=== PATIENT | female | born 1950 | race Caucasian/White ===

== ENCOUNTER 2018-02-01 16:31 | Emergency (ER) | payer OTHER ==
[~2018-02-01] VITALS: Ht 162.6 cm; Wt 70.3 kg
[2018-02-01] MEDS ORDERED: CIPRO500 MG PO (17:02)
[2018-02-01] MEDS ORDERED: COZAAR25 MG PO (17:02)
== END 2018-02-01 22:13 | disposition home or self-care (01) ==
LOC: ER 16:31
DX: K57.30 Diverticulosis of large intestine without perforation or abscess without bleeding (principal); R10.32 Left lower quadrant pain

== ENCOUNTER 2018-02-03 10:59 | Emergency (ER) | payer OTHER ==
[~2018-02-03] VITALS: Ht 162.6 cm; Wt 70.3 kg
[~2018-02-03 10:59] MED LIST: CIPRO500 MG PO; COZAAR25 MG PO
[2018-02-03] MEDS ORDERED: MEDROL4 MG (11:03)
== END 2018-02-03 13:52 | disposition home or self-care (01) ==
LOC: ER 10:59
DX: I82.492 Acute embolism and thrombosis of other specified deep vein of left lower extremity (principal)

== ENCOUNTER → 2018-02-07 06:20 | Outpatient (CLI) | payer OTHER ==
[~2018-02-07 06:20] MED LIST changes: +MEDROL4 MG
== END | disposition home or self-care (01) ==
LOC: LAB 06:20
DX: D68.59 Other primary thrombophilia (principal); D68.8 Other specified coagulation defects; D68.61 Antiphospholipid syndrome; I82.409 Acute embolism and thrombosis of unspecified deep veins of unspecified lower extremity; E03.8 Other specified hypothyroidism; E11.65 Type 2 diabetes mellitus with hyperglycemia; D64.89 Other specified anemias; R97.0 Elevated carcinoembryonic antigen [CEA]; Z12.11 Encounter for screening for malignant neoplasm of colon

== ENCOUNTER 2018-02-11 08:02 | Outpatient (CLI) | payer OTHER | END 2018-02-11 08:21 | disposition home or self-care (01) | LOC: LAB 08:02 | DX: D68.59 Other primary thrombophilia (principal); D68.69 Other thrombophilia; D68.61 Antiphospholipid syndrome; I82.409 Acute embolism and thrombosis of unspecified deep veins of unspecified lower extremity ==

== ENCOUNTER 2018-02-27 08:57 | Outpatient (CLI) | payer OTHER | END 2018-02-27 09:10 | disposition home or self-care (01) | LOC: NUCLEAR 08:57 | DX: I82.403 Acute embolism and thrombosis of unspecified deep veins of lower extremity, bilateral (principal) ==

== ENCOUNTER → 2018-03-13 | Emergency (ER) | payer OTHER ==
[~2018-03-13] VITALS: Ht 162.6 cm; Wt 68.0 kg
[~2018-03-13] MED LIST changes: +ELIQUIS5 MG
== END | disposition home or self-care (01) ==
LOC: ER 08:55
DX: R07.89 Other chest pain (principal)

== ENCOUNTER 2018-06-19 09:00 | Outpatient (CLI) | payer OTHER | END 2018-06-19 10:42 | disposition home or self-care (01) | LOC: LAB 09:00 | DX: I82.402 Acute embolism and thrombosis of unspecified deep veins of left lower extremity (principal); D68.69 Other thrombophilia ==

== ENCOUNTER 2018-06-27 15:03 | Outpatient (CLI) | payer OTHER | END 2018-06-27 15:13 | disposition home or self-care (01) | LOC: NUCLEAR 15:03 | DX: I82.532 Chronic embolism and thrombosis of left popliteal vein (principal) ==

== ENCOUNTER 2018-10-28 13:06 | Emergency (ER) | payer OTHER ==
[~2018-10-28] VITALS: Ht 160 cm; Wt 70.3 kg
== END 2018-10-28 15:57 | disposition home or self-care (01) ==
LOC: ER 13:06
DX: B34.9 Viral infection, unspecified (principal); J11.1 Influenza due to unidentified influenza virus with other respiratory manifestations

== ENCOUNTER → 2018-12-20 | Emergency (ER) | payer OTHER | END | disposition left against medical advice (07) | LOC: ER 16:18 | DX: Z53.20 Procedure and treatment not carried out because of patient's decision for unspecified reasons (principal) ==

== ENCOUNTER → 2020-02-24 06:44 | Outpatient (CLI) | payer OTHER | END | disposition home or self-care (01) | LOC: LAB 06:44 | DX: I82.422 Acute embolism and thrombosis of left iliac vein (principal) ==

== ENCOUNTER 2020-07-02 08:02 | Outpatient (CLI) | payer OTHER | END 2020-07-02 08:08 | disposition home or self-care (01) | LOC: RAD 08:02 | PROVIDERS: ATTEND Ophthalmology | DX: R06.89 Other abnormalities of breathing (principal) ==

== ENCOUNTER 2025-03-13 10:58 | Emergency (ER) | payer OTHER ==
[~2025-03-13] VITALS: Ht 162.6 cm; Wt 70.8 kg
[2025-03-13] MEDS ORDERED: 0.9 % SODIUM CHLORIDE 1,000 ML IV SCH (13:30)
[2025-03-13] MEDS ORDERED: FAMOTIDINE/PF 20 MG in 0.9 % SODIUM CHLORIDE 8 ML IV PUSH ONE (13:30)
[2025-03-13] MEDS ORDERED: ACETAMINOPHEN 500 MG GEL..CAP PO ONE ×3 (13:30→15:59)
[2025-03-13] MEDS ORDERED: FAMOTIDINE/PF 20 MG/2 ML VIAL ONE (13:57)
[2025-03-13 16:27] LABS: BASO % 0.6 % (0.1-1.2); EOS # 0.05 (0.04-0.54); EOS % 0.7 % (0.7-7.0); LYMPH # 1.71 (1.18-3.74); LYMPH % 25.5 % (19.3-53.1); MEAN PLATELET VOLUME 10.80 fl (9.4-12.4); MONO # 0.56 (0.24-0.82); MONO % 8.3 % (4.7-12.5); NEUT # 4.34 (1.56-6.13); NEUT % 64.8 % (34.0-71.1); RED CELL DISTRIBUTION WIDTH 13.4 % (11.6-14.4)
[2025-03-13 16:45] LABS: INR 1.02
[2025-03-13 16:48] LABS: D DIMER 0.22 MG/L
[2025-03-13 16:58] LABS: ALT/SGPT 22.0 U/L (12-78); AST/SGOT 15.0 U/L (15-37); BILIRUBIN TOTAL 0.48 mg/dL (0.3-1.2); BUN CREA RATIO 26.0 (7.0-25.0); CREATININE SERUM 0.65 mg/dL (0.55-1.02); GFR 88.86; GLOBULINA 3.8 G/DL (2.4-3.5); GLUCOSE FASTING 91.0 mg/dL (65-100); OSMOLALITY SERUM 282.0 MOSM/KG (275-295)
[2025-03-13] MEDS ORDERED: 8HR ARTHRITIS650 M1 PO (18:26)
== END 2025-03-13 19:58 | disposition home or self-care (01) ==
LOC: ER 10:58
PROVIDERS: General Practice
DX: M79.606 Pain in leg, unspecified (principal); I82.890 Acute embolism and thrombosis of other specified veins; I10 Essential (primary) hypertension; Z88.1 Allergy status to other antibiotic agents
CPT/HCPCS: 36415; 73551; 73560; 73590; 93005; 93971; 96365; 96366; 99284; J3490; J7030

== ENCOUNTER 2025-03-26 07:40 | Outpatient (CLI) | payer OTHER ==
[~2025-03-26 07:40] MED LIST changes: +8HR ARTHRITIS650 M1 PO
== END 2025-03-26 07:57 | disposition home or self-care (01) ==
LOC: MRI 07:40
PROVIDERS: ATTEND Orthopaedic Surgery
DX: M25.561 Pain in right knee (principal)
CPT/HCPCS: 73721